=== PATIENT | male | born 1965 | race Hispanic/Latino ===

== ENCOUNTER 2017-11-28 12:31 | Emergency (ER) | payer OTHER, SELFPAY ==
[2017-11-28 12:32] VITALS: BP 138/87; PULSE 69; RESP 14; TEMP 36.6; O2SAT 98; BMI 25.2
[2017-11-28 12:43] VITALS: O2SAT 98
--- NOTE | 2017-11-28 13:21 | CT_ITS ---
STUDY: CT FACIAL BONES WITHOUT CONTRAST REASON FOR EXAM: Male, 52 years old. Facial trauma. Loss of consciousness. RADIATION DOSAGE (If Supplied By Facility): CTDIvol = ( 33.45 ) mGy, DLP = ( 604.06 ) mGycm TECHNIQUE: The patient was scanned in a multi detector CT scanner. Sagittal and coronal images were reconstructed. Individualized dose optimization techniques were used for this CT. COMPARISON: None. FINDINGS: Normal soft tissue structures. Normal orbital menjivar and orbital contents. Normal nasal bones and anterior nasal spine. Normal facial bones. There is no demonstrated fracture. Minimal degree of mucosal thickening in the inferior aspect of the left maxillary sinus. CT/Sinus/Facial Bone IMPRESSION: Normal unenhanced CT of the facial bones. Electronically Signed: Linden Torres MD at 14:14 EDT Tel [phone], Service support ,
--- NOTE | 2017-11-28 13:21 | CT_ITS ---
STUDY: CT BRAIN WITHOUT CONTRAST REASON FOR EXAM: Male, 52 years old. Facial trauma. Loss of consciousness. RADIATION DOSAGE (If Supplied By Facility): CTDIvol = ( 60.81 ) mGy, DLP = ( 998.67 ) mGycm TECHNIQUE: Transaxial CT imaging of the brain was performed without administration of intravenous contrast material. Individualized dose optimization techniques were used for this CT. COMPARISON: None. FINDINGS: Normal soft tissue structures. Normal calvarium. Normal size ventricles and extra-axial spaces for the patient's age. Normal white matter tracts of the cerebral hemispheres. 1 cm lucency in the medial deep portion of the right temporal lobe. Normal basal ganglia and thalami. Normal brainstem. Normal cerebellum. There is no intracranial hemorrhage. There are no findings of an acute ischemic infarction. Normal visualized paranasal sinuses. 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 Electronically Signed: Linden Torres MD at 14:09 EDT Tel [phone], Service support ,
--- NOTE | 2017-11-28 13:50 | NURSING ---
KIM, [facility] AND SAID WHEN PATIENT IS DISCHARGED, EMPLOYER WILL COME PICK HIM UP AND TAKE HIM TO THE NOW CLINIC.
[2017-11-28] MEDS: Naproxen 500 MG Tablet PO (14:08)
--- NOTE | 2017-11-28 14:22 | ED.VIS.GEN ---
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 no n/v. no LOC. no periph neuro sx. no confusion. 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 He was kicked in the jaw. He has a headache, no loss of consciousness, he otherwise feels okay. No other injuries. Past Medical History - Allergies and Home Meds Allergies/Adverse Reactions: Allergies No Known Allergies Allergy (Verified 11/28/17 12:47) Home Medications: Home Medications Medication Instructions Recorded NK [NK] 11/28/17 Primary Care Physician: Care Physician,No Primary [Primary Care Provider] - Past Medical History: None Smoking Status: Never smoker Drugs: None Review of Systems All systems negative except as indicated ENT: Reports: - - Right jaw pain. Lower entire row of teeth hurt. No bleeding or dental loss.. Denies: Bilateral ear pain Musculoskeletal: Reports: Neck pain - Mostly right side Neurological: Reports: Headache Physical Exam Vital Signs/Narrative: Vital Signs Temp Pulse Resp BP Pulse Ox 11/28/17 12:43 98 11/28/17 12:32 98 F 69 14 138/87 H 98 General: Well nourished, Well developed Head: Normocephalic, Atraumatic Eyes: Perrl, EOMI ENT: Moist mucous membranes, No rhinorrhea, TM's clear - No hemotympanum., - - No nasal discharge or bleeding. No midface instability. Tender at the body of the right mandible, all of the way to the chin. No crepitance. No hematoma. No trismus. No dental loss, subluxation, or focal tenderness or signs of injury.. Negative for: Sinus tenderness Neck: Supple, - - Mild tenderness right side in the area of the sternocleidomastoid, no spinal tenderness. Full range of motion. Cardiovascular: Regular rate, Regular rhythm, No murmurs Respiratory: No distress, CTA bilaterally, Chest nontender Abdomen: Soft, Nontender, Nondistended, Normal bowel sounds Back: Nontender, Normal Inspection Extremities: Nontender, No edema Skin: Normal color, No rash. 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 Electronically Signed: Linden Torres MD at 14:09 EDT Tel [phone], Service support , Facial/Sinus 11/28/17 13:21 IMPRESSION: Normal unenhanced CT of the facial bones. Electronically Signed: Linden Torres MD at 14:14 EDT Tel [phone], Service support , - Medical Decision Making Given naproxen for pain which helped. CT is unremarkable; we had to obtain CT of the maxillofacial bones because we do not have the ability or machinery to Panorex a patient. Since he has to go for a drug screen, he was not given any opiates. 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 He may have concussion, and this could worsen in the next 48 hours. Given appropriate restrictions and encouraged to follow-up closely. ED Disposition - Plan for ED Patient: Disposition: Home or Assisted Living Chief Complaint: Trauma Diagnosis: Concussion without loss of consciousness, initial encounter, Cervical strain, acute, Contusion of jaw Instructions: ED Concussion Referrals: [facility] [GROUP OF PHYSICIANS] - (1-2 days)
--- NOTE | 2017-11-28 14:36 | ED.DCSUM_ITS ---
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 no n/v. no LOC. no periph neuro sx. no confusion. 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 He was kicked in the jaw. He has a headache, no loss of consciousness, he otherwise feels okay. No other injuries. Past Medical History - Allergies and Home Meds Allergies/Adverse Reactions: Allergies No Known Allergies Allergy (Verified 11/28/17 12:47) Home Medications: Home Medications Medication Instructions Recorded NK [NK] 11/28/17 Primary Care Physician: Care Physician,No Primary [Primary Care Provider] - Past Medical History: None Smoking Status: Never smoker Drugs: None Review of Systems All systems negative except as indicated ENT: Reports: - - Right jaw pain. Lower entire row of teeth hurt. No bleeding or dental loss.. Denies: Bilateral ear pain Musculoskeletal: Reports: Neck pain - Mostly right side Neurological: Reports: Headache Physical Exam Vital Signs/Narrative: Vital Signs Temp Pulse Resp BP Pulse Ox 11/28/17 12:43 98 11/28/17 12:32 98 F 69 14 138/87 H 98 General: Well nourished, Well developed Head: Normocephalic, Atraumatic Eyes: Perrl, EOMI ENT: Moist mucous membranes, No rhinorrhea, TM's clear - No hemotympanum., - - No nasal discharge or bleeding. No midface instability. Tender at the body of the right mandible, all of the way to the chin. No crepitance. No hematoma. No trismus. No dental loss, subluxation, or focal tenderness or signs of injury.. Negative for: Sinus tenderness Neck: Supple, - - Mild tenderness right side in the area of the sternocleidomastoid, no spinal tenderness. Full range of motion. Cardiovascular: Regular rate, Regular rhythm, No murmurs Respiratory: No distress, CTA bilaterally, Chest nontender Abdomen: Soft, Nontender, Nondistended, Normal bowel sounds Back: Nontender, Normal Inspection Extremities: Nontender, No edema Skin: Normal color, No rash. 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 Electronically Signed: Linden Torres MD at 14:09 EDT Tel [phone], Service support , Facial/Sinus 11/28/17 13:21 IMPRESSION: Normal unenhanced CT of the facial bones. Electronically Signed: Linden Torres MD at 14:14 EDT Tel [phone], Service support , - Medical Decision Making Given naproxen for pain which helped. CT is unremarkable; we had to obtain CT of the maxillofacial bones because we do not have the ability or machinery to Panorex a patient. Since he has to go for a drug screen, he was not given any opiates. 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 He may have concussion, and this could worsen in the next 48 hours. Given appropriate restrictions and encouraged to follow- up closely. ED Disposition - Plan for ED Patient: Disposition: Home or Assisted Living Chief Complaint: Trauma Diagnosis: Concussion without loss of consciousness, initial encounter, Cervical strain, acute, Contusion of jaw Instructions: ED Concussion Referrals: [facility] [GROUP OF PHYSICIANS] - (1-2 days)
[2017-11-28 15:21] VITALS: BP 128/74; PULSE 72; RESP 14; O2SAT 98
== END 2017-11-28 16:19 | disposition home or self-care (01) ==
PROVIDERS: Emergency Provider Emergency Medicine
DX: S06.0X0A Concussion without loss of consciousness, initial encounter (principal); S16.1XXA Strain of muscle, fascia and tendon at neck level, initial encounter; S00.83XA Contusion of other part of head, initial encounter; W01.0XXA Fall on same level from slipping, tripping and stumbling without subsequent striking against object, initial encounter; W55.42XA Struck by pig, initial encounter; Y93.K9 Activity, other involving animal care; Y92.79 Other farm location as the place of occurrence of the external cause; Y99.0 Civilian activity done for income or pay
CPT/HCPCS: 70450; 70486; 99283